=== PATIENT | male | born 1965 | race Caucasian/White ===

== ENCOUNTER 2018-08-13 09:51 | Emergency (ER) | payer SELFPAY ==
[~2018-08-13] VITALS: Ht 175.3 cm; Wt 90.0 kg
[2018-08-13] MEDS ORDERED: IBUPROFEN 600MG TABLET PO ONE (11:45)
[2018-08-13 13:42] LABS: CHLORIDE 103 mEq/L (98-107)
[2018-08-13 14:07] VITALS: BP 132/84
== END 2018-08-13 14:11 | disposition home or self-care (01) ==
LOC: ER 09:51
DX: M10.9 Gout, unspecified (principal); M79.644 Pain in right finger(s); F12.10 Cannabis abuse, uncomplicated; R41.3 Other amnesia; Z91.030 Bee allergy status
CPT/HCPCS: 36415; 73140; 80048; 84550; 99284

== ENCOUNTER 2018-09-11 10:01 | Emergency (ER) | payer SELFPAY ==
[~2018-09-11] VITALS: Ht 175.3 cm; Wt 90.0 kg
[2018-09-11] MEDS ORDERED: KETOROLAC 60MG/2ML VIAL IM ONE (13:00)
[2018-09-11] MEDS ORDERED: COLCHICINE 0.6MG TABLET PO ONE (13:00)
[2018-09-11 13:05] VITALS: BP 111/83
== END 2018-09-11 14:48 | disposition home or self-care (01) ==
LOC: ER 10:01
DX: M10.9 Gout, unspecified (principal); M79.662 Pain in left lower leg; F12.10 Cannabis abuse, uncomplicated; Z87.820 Personal history of traumatic brain injury; Z91.030 Bee allergy status; Z91.018 Allergy to other foods
CPT/HCPCS: 73630; 96372; 99283; J1885